=== PATIENT | female | born 1970 | race Caucasian/White ===

== ENCOUNTER → 2024-04-05 16:19 | Outpatient (CLI) | payer BC, SELFPAY ==
--- NOTE | 2024-04-05 16:24 | DI.US.S_ITS ---
PROCEDURE: US PELVIC COMPLETE INDICATIONS: POSTMENOPAUSAL BLEEDING TECHNIQUE: Real-time scanning was performed of the pelvic organs, with image documentation. Additional endovaginal scanning was necessary due to incomplete visualization of the adnexal and endometrial structures by transabdominal scanning. COMPARISON: None. FINDINGS: Uterus: Uterus is anteflexed and normal in size at 7.5 x 3.8 x 4.3 cm. The myometrium is homogeneous. The endometrium measures 4.6 mm combined thickness. No fibroids Ovaries: The right ovary measures 1.1 x 0.6 x 1.2 cm, with a calculated ovarian volume of 0.4 cc. The left ovary measures 1.9 x 1.1 x 2.5 cm, with a calculated ovarian volume of 2.6 cc. The ovaries have a normal sonographic appearance. Less than 12 follicles can be seen in each ovary. No adnexal masses are seen. Other: No pathologic free abdominal or pelvic fluid. IMPRESSION: Unremarkable pelvic ultrasound in a postmenopausal female. Endometrial thickness is 4.6 mm. We strive to produce accurate, complete, and clear reports of imaging services. To assist us in improving patient care, this report was composed using standard report templates and voice recognition software. Therefore, it may contain abnormal punctuation, insertions and/or omissions. Occasional wrong-word or sound-alike substitutions may occur. Though we review the report and make efforts to correct it, we do recommend that the report be read carefully in proper context to recognize any text inaccuracies. Dictated by: Andrew Wilburn M.D. on 04/06/2024 at 10:29 Approved by: Andrew Wilburn M.D. on 04/06/2024 at 10:32
== END ==
PROVIDERS: PCP Naturopath; Referring Provider Naturopath; Visit Provider Naturopath
DX: N95.0 Postmenopausal bleeding (principal)
CPT/HCPCS: 76856